=== PATIENT | female | born 1945 | race Caucasian/White ===

== ENCOUNTER 2017-02-08 05:53 | Day surgery (SDC) | payer MEDICARE ==
[2017-02-07 11:58] LABS: HEMATOCRIT 39.6 % (36.0-48.0); HEMOGLOBIN 12.9 g/dL (12-16); MCH 30.9 pg (26.0-34.0); MCHC 32.6 g/dL (31.0-37.0); MCV 94.7 fL (80.0-100.0); MEAN PLATELET VOLUME 10.7 fL (7.4-10.4); RBC 4.18 10x6/uL (4.00-5.40); RDW 13.2 % (11.5-14.5); WBC 5.4 10x3/uL (4.8-10.8)
[2017-02-07 12:08] LABS: INR 1.26 (0.85-1.17); PROTIME 15.6 SECONDS (11.6-15.0)
[~2017-02-08] VITALS: Ht 161.3 cm; Wt 74.8 kg
[~2017-02-08 05:53] MED LIST: CORDARONE200 MG PO; COUMADIN5 MG PO; DIOVAN HCT 160/1 TA1 PO
[2017-02-08 08:24] VITALS: BP 118/77; Ht 161.3 cm; Wt 74.8 kg
--- NOTE | 2017-02-08 11:19 | NUR ---
SCOPE PATCH BEHIND RT EAR ON ADMIT
--- NOTE | 2017-02-08 16:01 | NUR ---
1350--PT VOIDS, IV DC'D. SILVIO AGUAYO 1714--DISCHARGE INSTRUCTIONS GIVEN, PT VERBALIZES UNDERSTANDING. PT OFF UNIT VIA WC. SILVIO AGUAYO
--- NOTE | 2017-02-15 09:50 | OP ---
PATIENT NAME: AP PLATA MEDICAL RECORD: [id number] :43 LOCATION:D.OPS ADMISSION DATE: SURGEON: CHELSI RAND DPM DATE OF OPERATION: 02/08/2017 PREOPERATIVE DIAGNOSES: 1. Hallux abductovalgus, left foot. 2. Instability, left first met cuneiform joint. 3. Plantar plate rupture, left second metatarsophalangeal joint. 4. Hammertoe deformity, left second digit. 5. Hammertoe deformity, left third digit. 6. Hammertoe deformity, left fourth digit. POSTOPERATIVE DIAGNOSES: 1. Hallux abductovalgus, left foot. 2. Instability, left first met cuneiform joint. 3. Plantar plate rupture, left second metatarsophalangeal joint. 4. Hammertoe deformity, left second digit. 5. Hammertoe deformity, left third digit. 6. Hammertoe deformity, left fourth digit. PROCEDURES: 1. Pickens bunionectomy, left foot. 2. First met cuneiform joint fusion, left foot. 3. Chuckie osteotomy, left second metatarsal. 4. Plantar plate repair, left second MPJ. 5. PIPJ fusion, left second digit. 6. Flexor tenotomy, left third digit. 7. Flexor tenotomy, left fourth digit. ANESTHESIA: Preoperative popliteal block per the anesthesia department with intraoperative Marcaine, approximately 8 cc total around the saphenous nerve at the medial ankle. HEMOSTASIS: Left thigh tourniquet at 350 mmHg. PREOPERATIVE DETAILS: The patient was taken to the OR and placed on the operative table in a supine position. This was followed by induction of general anesthesia. The left extremity was then prepped and draped in usual aseptic technique. Local anesthetic was then infiltrated around the saphenous nerve. PROCEDURE NUMBER 1: Pickens bunionectomy, left foot. A 15-blade was used to create a 3 cm linear incision over the dorsal aspect of the first ray extending to the base of proximal phalanx of the hallux. The incision was deepened down through subcutaneous tissue being sure to avoid all vital structures and an inverted L capsulotomy was then performed on the first MPJ capsule. The medial capsular flap was reflected and the head of the first metatarsal was delivered. 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 A sagittal saw was used to resect the medial eminence. Attention was then directed to the first interspace where a lateral release was performed. Good reduction of the lateral contracture was verified, clinically. PROCEDURE NUMBER 2: First met cuneiform joint fusion. Incision was made on the dorsal aspect of the left foot extending from the dorsal aspect of the medial cuneiform distally to the midshaft of the first metatarsal. The incision was OPERATIVE REPORT [id number] AP PLATA deepened down through subcutaneous tissue being sure to avoid all vital structures. Dissection was carried down to the first met cuneiform joint where a linear capsular incision was made and the joint was freed. A sagittal saw was used to resect the cartilaginous surface from the medial cuneiform and the proximal aspect of the first metatarsal. Once the fusion site was prepped, a temporary K-wire was placed. A 5-hole plate with one screw crossing the fusion site as a compression screw was then placed. C-arm was used to verify good placement as well as alignment. The wound was flushed. The incision as described in #1, as well as the incision described in #2 was closed like this. The deep tissue was repaired with 2-0 Vicryl. The subcutaneous tissue was closed with 4-0 Rapide and the skin was closed with 4-0 Rapide in a subcuticular technique followed by Dermabond to both incisions. PROCEDURE NUMBER 3: Chuckie osteotomy, left second metatarsal. A 15-blade was used to create a linear curvilinear incision from the dorsal aspect of the distal mid shaft to the second metatarsal, transversely across the second MPJ and then on top of the dorsal, on top of the second digit to the PIPJ. The incision was deepened down through subcutaneous tissue and the extensor longus tendon was then visualized and freed and a Z-tenotomy was performed, reflecting the extensor longus tendon in a Z fashion. The joint capsule was then incised longitudinally in delivering the second metatarsal head as well as the base of the proximal phalanx of the second digit. At this time, a McGlamry scoop elevator was used to free the plantar structures. A sagittal saw was then used to create a Chuckie osteotomy from dorsal distal to plantar proximal. The capital fragment or the head of the second metatarsal was then pushed proximally and temporarily fixated with a 0.062 inch K-wire. PROCEDURE NUMBER 4: Plantar plate repair. At this time, with the K-wire in the proximal phalanx, K-wire on the second metatarsal, a joint distractor was placed over the wires and the joint was distracted. Upon initial evaluation, there was a tear on the lateral aspect of the plantar plate. At this time, the tear was completed across from lateral to medial, utilizing a scorpion passer. FiberWire was placed up through the plantar plate. Two holes were then drilled in the proximal aspect of the proximal phalanx of the second digit and the wires were passed up through the drill holes. The K-wires were removed. The second metatarsal head was then reapproximated to its original location with approximately 2-mm shortening. Two pop-off screws were then placed to hold the osteotomy in place. At this time, the sutures that were passed op through the proximal phalanx were then tightened with the second digit being held in a slightly plantarflexed and lateral position. Once the surgeon's knots were tied, the toe was left free and it was sitting in a very excellent rectus position. PROCEDURE NUMBER 5: PIPJ fusion, left second digit. The extensor tendon was freed from the dorsal PIPJ. A sagittal saw was used to resect the head of the proximal phalanx and the base of the middle phalanx. A small drill hole was then made in both. A bone graft was placed in the proximal phalanx and then the distal fragment was then placed on top of the bone graft sticking out of the proximal phalanx compressing the fusion site at the PIPJ. Excellent alignment was noted as well as fixation. The wound was then flushed and then the joint capsule of second MPJ was repaired with 2-0 Vicryl. The extensor longus tendon was repaired with 4-0 Rapide. The subcutaneous tissue was closed with 4-0 Rapide and the skin was closed in a subcuticular technique with 4-0 Rapide followed by Dermabond. OPERATIVE REPORT [id number] AP PLATA PROCEDURE NUMBER 6. Flexor tenotomy, left third digit. A 15-blade was used to create a small stab incision at the base of the plantar aspect of the left third digit. The flexor tendon was then released noting excellent reduction of the plantar contractures of the third digit. PROCEDURE NUMBER 7. Flexor tenotomy, left fourth digit. Procedure was described in 6 without variation and no complication. Again, all wounds were closed with Dermabond. Adaptic, 4 x 4 and Conform were used to dress the wound followed by application of a modified Sandhu compression dressing. Tourniquet was deflated. POSTOPERATIVE DETAILS: The patient tolerated the procedure well and left the OR with vital signs stable and vascular status at preoperative levels. The patient was transported to recovery per anesthesia in stable condition. 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
== END 2017-02-08 14:05 | disposition home or self-care (01) ==
LOC: D.OPS 05:53 → D.PAN 10:00 → D.OPS 11:05
PROVIDERS: Anesthesiology
DX: M20.12 Hallux valgus (acquired), left foot (principal); M25.375 Other instability, left foot; S93.692A Other sprain of left foot, initial encounter; M20.42 Other hammer toe(s) (acquired), left foot